=== PATIENT | female | born 1985 | race Two or more races ===

== ENCOUNTER 2019-09-26 12:46 | Emergency (ER) | payer MEDICAID ==
[~2019-09-26] VITALS: Ht 162.6 cm; Wt 89.8 kg
[2019-09-26 13:17] VITALS: BP 141/93
[2019-09-26] MEDS ORDERED: IBUPROFEN 600 MG TABLET PO ONE ×2 (13:49→14:00)
[2019-09-26] MEDS ORDERED: ACETAMINOPHEN ES 500 MG TABLET PO ONE (14:00)
[2019-09-26] MEDS ORDERED: IPRATROPIUM NEB FS 0.5 MG/2.5 ML AMPUL.NEB NEB ONE (14:00)
[2019-09-26] MEDS ORDERED: ALBUTEROL FS 2.5 MG/3 ML VIAL.NEB NEB ONE (14:00)
[2019-09-26] MEDS ORDERED: IPRATROPIUM NEB FS 0.5 MG/2.5 ML AMPUL.NEB ONE (14:45)
[2019-09-26] MEDS ORDERED: ALBUTEROL FS 2.5 MG/3 ML VIAL.NEB ONE (14:45)
== END 2019-09-26 16:01 | disposition home or self-care (01) ==
LOC: ER 12:48
DX: J18.9 Pneumonia, unspecified organism (principal)
CPT/HCPCS: 71046

== ENCOUNTER 2019-10-19 20:21 | Emergency (ER) | payer MEDICAID ==
[~2019-10-19] VITALS: Ht 162.6 cm; Wt 86.2 kg
[2019-10-19 21:06] VITALS: BP 145/72
== END 2019-10-19 21:37 | disposition home or self-care (01) ==
LOC: ER 20:23
DX: R05 Cough (principal)

== ENCOUNTER 2023-03-10 21:18 | Emergency (ER) | payer BC, MEDICAID ==
[~2023-03-10] VITALS: Ht 162.6 cm; Wt 89.4 kg
[2023-03-10 22:16] LABS: APPEARANCE,URINE CLEAR (CLEAR); BILIRUBIN,URINE 1+ (NEGATIVE); BLOOD, URINE 1+ Ery/uL (NEGATIVE); COLOR,URINE YELLOW (YELLOW); KETONES,URINE TRACE mg/dL (NEGATIVE); LEUKOCYTE ESTERASE ,URINE NEGATIVE (NEGATIVE); NITRITE, URINE NEGATIVE (NEGATIVE); PH,URINE 5.5 (5.0-8.0); PROTEIN,URINE TRACE mg/dl (NEGATIVE); UGLUCOSE NEGATIVE (NEGATIVE)
[2023-03-10 22:31] LABS: PREGNANCY TEST URINE QUAL NEGATIVE (NEGATIVE)
[2023-03-10 22:36] LABS: ADD URINE CULTURE NO; BACTERIA,URINE 1+ /HPF (None Seen); MUCUS,URINE Few /LPF (None Seen); WBC,URINE 0-2 /HPF (0-3)
[2023-03-10] MEDS ORDERED: NITR100C PO (23:11)
[2023-03-10 23:34] VITALS: BP 164/84; TEMP 98.3; O2SAT 98
== END 2023-03-10 23:34 | disposition home or self-care (01) ==
LOC: ER 21:21
DX: N39.0 Urinary tract infection, site not specified (principal); F17.210 Nicotine dependence, cigarettes, uncomplicated
CPT/HCPCS: 81001; 84703-TC